=== PATIENT | female | born 1985 | race Two or more races ===

== ENCOUNTER 2020-02-20 06:02 | Emergency (ER) | payer MEDICAID ==
--- NOTE | 2020-02-20 08:50 | RADIOLOGY REPORT (SQ) ---
EXAM DESCRIPTION: CHEST SINGLE VIEW IMAGES COMPLETED DATE/TIME: 02/20/2020 8:40 am REASON FOR STUDY: shortness of breath COMPARISON: None. EXAM PARAMETERS: NUMBER OF VIEWS: One view. TECHNIQUE: Single frontal radiographic view of the chest acquired. RADIATION DOSE: NA LIMITATIONS: None. FINDINGS: LUNGS AND PLEURA: No opacities, masses or pneumothorax. No pleural effusion. MEDIASTINUM AND HILAR STRUCTURES: No masses. Contour normal. HEART AND VASCULAR STRUCTURES: Heart normal in size. Normal vasculature. Obscuration of the cardiac apex, likely secondary to pericardial fat. BONES: No acute findings. HARDWARE: None in the chest. OTHER: 5 mm density overlies midline at the level of the thoracic inlet, etiology uncertain. IMPRESSION: 5 mm radiodensity overlies midline at the level of the thoracic and line, etiology uncer tain and possibly external to the patient. No other evidence of acute intrathoracic process. TECHNICAL DOCUMENTATION: JOB ID: [id number] 2010 [employer]- All Rights Reserved Reading location - IP/workstation name: [email or web address]
--- NOTE | 2020-02-20 09:05 | ER Document Report ---
ED General - General Chief Complaint: Cold Symptoms Stated Complaint: DIARRHEA,FEVERISH,CONFUSED,WEAK,COUGH Notes: 34-year-old female with past medical history of ADHD, anxiety, depression presenting today with nonproductive cough and sore throat for approximately 5 da ys. She is also reporting some nausea and 2-3 episodes of vomiting the last 5 days. She had diarrhea that started last night. She has had no change in appetite. No abdominal pain. No fevers or chills. Unknown last menstrual period. Is able to eat and drink foods. Tried Gorin for her symptoms. States that the cough is worse at night and worse when she lays down. - Related Data Allergies/Adverse Reactions: No Known Allergies Allergy (Unverified 02/20/20 06:27) Home Medications: Aprazolam. Fluoxetine Past Medical History - Social History Smoking Status: Never Smoker Family History: Reviewed & Not Pertinent Review of Systems - Review of Systems Constitutional: See HPI EENT: See HPI Cardiovascular: No symptoms reported Respiratory: See HPI Gastrointestinal: See HPI Genitourinary: No symptoms reported Female Genitourinary: No symptoms reported Musculoskeletal: No symptoms reported Skin: No symptoms reported Hematologic/Lymphatic: No symptoms reported Neurological/Psychological: No symptoms reported Physical Exam - Vital signs Vitals: Temp Pulse Resp BP Pulse Ox 97.4 F 131 H 16 129/85 H 94 02/20/20 06:06 02/20/20 06:06 02/20/20 06:06 02/20/20 06:06 02/20/20 06:06 Interpretation: Tachycardic. No: Hypotensive, Hypertensive, Tachypneic, Febrile - Notes Notes: Adult General: GENERAL: Alert, interacts well. No acute distress HEAD: Normocephalic, atraumatic EYES: Pupils equal, round and reactive to light. Extraocular movements intact. ENT: Oral mucosa moist, tongue midline. Oropharynx unremarkable. Airway patent. Nares patent, sinuses nontender, ear canals unremarkable, TMs intact. No Trismus. NECK: Full range of motion. Supple. Trachea midline. No lymphadenopathy. LUNGS: Clear to auscultation bilaterally, no wheezes, rales, or rhonchi. No respiratory distress. Nontender chest wall. HEART: Regular rate and rhythm. No murmurs, rubs or gallops. ABDOMEN: Soft, nontender. Nondistended. (-) Vadito sign. Bowel sounds present in all 4 quadrants. No rebound, guarding or masses. GENITOURINARY: Deferred EXTREMITIES: Moves all 4 extremities spontaneously. No edema, normal radial and dorsal pedis pulses bilaterally. No cyanosis. BACK: No cervical, thoracic, lumbar midline tenderness. No saddle anesthesia, normal distal neurovascular exam. Moves all extremities with full range of motion. NEUROLOGICAL: Alert and oriented x3. Normal speech. Cranial nerves II through XII grossly intact. Strength 5/ 5 in all extremities. PSYCH: Normal affect, normal mood. SKIN: Warm, dry, normal turgor. No rashes or lesions noted. Dermal piercing left chest. Course - Re-evaluation Re-evalutation: 02/20/20 09:12 Patient's chest x-ray was ordered. Pending results. Patient does not desire to have any antinausea medication as it makes her extremely tired. I will swab her for strep at this time. CXR shows no acute cardiopulmonary process. 5 mm radiopacity is consistent with patients piercing. Patient strep is negative. HR is now 100. Patients vitals, physical exam and workup are unremarkable. Findings are consistent with URI. I am comfortable discharging the patient at this time. Strict return precautions discussed. Notified by nurse patient now wants zofran prescribed after refusing the medication initially and wanting to take the medication ordered in the ER home with her. I have e scribed a script of zofran for the patient. . - Vital Signs Vital signs: Temp Pulse Resp BP Pulse Ox 97.6 F 101 H 16 119/60 98 02/20/20 10:41 02/20/20 10:36 02/20/20 06:06 02/20/20 10:41 02/20/20 10:41 Discharge - Discharge Clinical Impression: URI (upper respiratory infection) Qualifiers: URI type: unspecified viral URI Qualified Code(s): J06.9 - Acute upper respiratory infection, unspecified Condition: Stable Disposition: HOME, SELF-CARE Instructions: Acetaminophen, Upper Respiratory Illness ([facility]), Viral Syndrome ([facility]) Additional Instructions: Your symptoms are most likely due to a viral infection it should resolve over the next 7-14 days. You should take [id number] guanfacine per bottle instructions to help thin the mucus. You may also use tylenol or ibuprofen as needed for aches and thorat discomfort. Please be sure to drink plenty of fluids and get rest. Return to the emergency department he began having difficulty breathing, chest pain, persistent vomiting, or any other symptoms that are concerning to you. Prescriptions: Ondansetron [Zofran Odt 4 mg Tablet] 1 - 2 tab PO Q4H PRN #15 tab.rapdis PRN Reason: For Nausea/Vomiting Forms: Parent Work Note
[2020-02-20] MEDS ORDERED: DEXAMETHASONE 4 MG TABLET PO ONE (10:25)
[2020-02-20 10:42] VITALS: BP 119/60
== END 2020-02-20 11:10 | disposition home or self-care (01) ==
LOC: ER 06:02
DX: J06.9 Acute upper respiratory infection, unspecified (principal); B97.89 Other viral agents as the cause of diseases classified elsewhere; R05 Cough; J02.9 Acute pharyngitis, unspecified; R11.2 Nausea with vomiting, unspecified; R19.7 Diarrhea, unspecified; F41.9 Anxiety disorder, unspecified; F32.9 Major depressive disorder, single episode, unspecified; Z79.899 Other long term (current) drug therapy
CPT/HCPCS: 99284; 87070; 87880; 71045; J3490; J8540